=== PATIENT | female | born 1970 | race Hispanic/Latino ===

== ENCOUNTER 2019-04-14 14:38 | Outpatient (CLI) | payer BC ==
--- NOTE | 2019-04-14 15:27 | ULT ---
ULTRASOUND WITH DOPPLER DUPLEX VENOUS LOWER EXTREMITY RIGHT: CPT: 17576 ICD-10-PCS: B54D INDICATION: Pain/edema. TECHNIQUE: Color flow Doppler, spectral waveform analysis of pulsed Doppler, and pearce-scale imaging with frank queenie and augmentation, were used to evaluate the right common femoral, femoral, popliteal, posterior tibial, and superficial femoral, veins; and the proximal portions of the profunda femoral and greater saphenous, veins. FINDINGS: Appropriate compressibility and flow within the imaged deep vein system of right lower extremity. IMPRESSION: No deep venous thrombosis of the visualized right lower extremity. POS: [facility]
== END 2019-04-14 14:39 | disposition home or self-care (01) ==
LOC: ULT 14:38
PROVIDERS: ATTEND Physician Assistant
DX: M79.89 Other specified soft tissue disorders (principal); M79.604 Pain in right leg

== ENCOUNTER 2021-02-28 15:18 | Outpatient (CLI) | payer BC | END 2021-02-28 15:19 | disposition home or self-care (01) | LOC: BICULT 15:18 | PROVIDERS: ATTEND Internal Medicine | DX: M79.604 Pain in right leg (principal) ==